=== PATIENT | female | born 1995 | race Caucasian/White ===

== ENCOUNTER 2024-08-09 10:08 | Emergency (ER) | payer BC, SELFPAY ==
[2024-08-09 10:17] VITALS: BP 101/59; PULSE 69; RESP 17; TEMP 36.9; O2SAT 100; BMI 21.5
[2024-08-09 11:37] LABS: Basophils % 0.4 %; Eosinophils # 0.1 10^3/uL (0.0-0.8); Hematocrit 38.3 % (36-47); Lymphocytes # 2.2 10^3/uL (0.8-4.8); Lymphocytes % 26.2 %; Mean Corpuscular HGB Conc 33.4 g/dL (30-55); Mean Corpuscular Volume 89.9 fl (85-98); Mean Platelet Volume 10.4 fL (7.4-10.4); Monocytes # 0.6 10^3/uL (0.2-0.9); Monocytes % 7.3 %; Neutrophils # 5.45 10^3/uL (1.8-7.7); Neutrophils % 64.6 %; Nucleated Red Blood Cells % 0 %; Platelet Count 227 10^3/cmm (157-399); Red Blood Count 4.26 10^6/uL (3.85-5.65); Red Cell Distribution Width 13.1 % (12.1-15.1); White Blood Count 8.41 10^3/uL (3.29-11.43)
--- NOTE | 2024-08-09 11:53 | USR_ITS ---
PROCEDURE INFORMATION: Exam: US , Transvaginal Exam date and time: 08/09/2024 1:30 PM Clinical indication: complicated by abdominal or pelvic pain; Left lower quadrant; First trimester (<14 weeks 0 days); Gestational age or lmp: ? ; Additional info: Abd pain in . No history of recent trauma or surgery is provided. TECHNIQUE: Imaging protocol: Real-time transvaginal obstetrical ultrasound of the maternal pelvis with image documentation. Transvaginal imaging was used for better evaluation of the fetus, adnexa, and/or cervix. COMPARISON: No relevant prior studies available. FINDINGS: Uterus: The uterus measures 6.7 x 4.2 x 3.7 cm. The uterine parenchymal echogenicity appears to be relatively homogeneous overall. The endometrial stripe thickness is around 0.6 cm. There appears to be some trace central uterine canal fluid present. No organized fluid to suggest central uterine canal gestational sac is currently appreciated. Cervix: The cervix measures 3.1 cm in length. No cervix level fluid collections are currently appreciated. Right ovary/adnexa: The right ovary measures 3.6 x 2.7 x 2.4 cm with color flow demonstrated. There are right ovarian follicular cystic changes present. There is 1 slightly complex area which measures around 1.6 x 1.6 x 2.2 cm with some color flow and could represent processes including complex cyst. No significant peripheral ring type hyperemia or internal fluid collections are currently appreciated for confirmation. There also appears to be some subtle prominence of the adjacent tube and could represent some minimal hydrosalpinx. Left ovary/adnexa: The left ovary measures 2.2 x 1.7 x 1.4 cm with color flow demonstrated. Left ovary demonstrates some follicular cystic change also with 1 of the larger areas measuring around 1 x 0.8 cm. Intraperitoneal space: There is a small amount of pelvic, cul-de-sac fluid present. US/US OB <=14 wk fetus w transvag IMPRESSION: 1. No intrauterine or extrauterine gestational confirmation is currently appreciated. There is however some complex cystic appearance for example about the right ovary without significant circumferential hyperemia. Therefore, consider continued clinical, hCG follow-up. 2. There are some ovarian cystic changes also present of the left. 3. There is a small amount of pelvic, cul-de-sac fluid. 4. Ovarian color flow is demonstrated bilaterally.
[2024-08-09 11:57] VITALS: BP 105/63; PULSE 72; RESP 16; O2SAT 100
[2024-08-09 12:00] VITALS: BP 104/58; PULSE 71; RESP 16; O2SAT 100
[2024-08-09 12:04] LABS: Bilirubin Urine Negative (Negative); Blood Urine Negative (Negative); Glucose Urine UA Negative (Normal); Ketones Urine Negative (Negative); Leukocyte Esterase Urine Negative (Negative); Nitrate Urine Negative (Negative); Protein Urine Negative (Negative); Specific Gravity, Urine 1.011 (1.005-1.030); Urine Appearance Clear (CLEAR); Urine Color Yellow (Yellow); Urobilinogen Urine 0.2 mg/dL (Negative); pH Urine 7.5 (5-7)
[2024-08-09 12:06] LABS: Alanine Aminotransferase 10 U/L (0-33); Albumin Level 4.3 g/dL (3.5-5.2); Alkaline Phosphatase 52 U/L (35-105); Anion Gap 12.7 (5-19); Aspartate Amino Transferase 13 U/L (0-32); Blood Urea Nitrogen 10 mg/dL (6-20); Calcium 8.9 mg/dL (8.5-10.5); Carbon Dioxide 19 mmol/L (22-29); Chloride 104 mmol/L (98-107); Creatinine Clr Calc Pharmacy 137.3238; Globulin 2.3 g/dL (1.3-4.6); Glucose 90 mg/dL (65-115); Lipase 14 U/L (13-60); Osmolality Calculated 273 mOsm/kg (285-295); Potassium 3.7 mmol/L (3.5-5.1); Sodium 132 mmol/L (136-145); Total Bilirubin 0.4 mg/dL (0.15-1.2); Total Protein 6.6 g/dL (6.6-8.7)
[2024-08-09 12:09] LABS: Add Urine Microscopic? YES; Bacteria Urine Trace /hpf; Hyaline Casts Urine 0-4 /lpf; Squamous Epithelial Cell Urine 0-5 /hpf (0-5); WBC Urine 0-5 /hpf (0-5)
--- NOTE | 2024-08-09 12:09 | ED_ITS ---
HPI - Abdominal Pain 2 General: Chief Complaint: Abdominal Pain Stated Complaint: cramping (6wk preg) Time Seen by Provider: 08/09/24 10:55 Source: patient Mode of arrival: ambulatory Limitations: no limitations History of Present Illness: 29-year-old female who is currently 6 we eks states she has been having some lower abdominal cramping over the last few days with some nausea. The pain is currently 2 out of 10 she denies any fevers. Denies any worse improving factors Associated Symptoms: Reports nausea; Denies chills, diarrhea, dysuria and fever(s) Related Data Date of Last Menstrual Period: 06/24/24 Allergies Allergy/AdvReac Type Severity Reaction Status Date / Time No Known Allergies Allergy Verified 08/09/24 10:22 Review of Systems 2 Const: Denies: fever(s), chills, body aches or change in appetite ENMT: Denies: throat pain or dental pain Card: Denies: chest pain Resp: Denies: dyspnea GI: Reports: abdominal pain and nausea; Denies: diarrhea : Denies: dysuria Musc: Denies: neck pain or back pain Skin/Breast: Denies: rash Neuro: Denies: headache(s) [facility] ED 2 Female Reproductive History: Date of last menstrual period: 06/24/24 Physical Exam 2 Const: COMMON NORMALS: no acute distress, patient oriented x3 and healthy appearing HENMT: COMMON NORMALS: normocephalic and atraumatic HEAD & SCALP: n ormocephalic and atraumatic Eye: COMMON NORMALS: conjunctivae normal CONJUNCTIVA: Yes conjunctivae normal Neck/C-Spine: COMMON NORMALS: full ROM and supple Chest: COMMONS NORMALS: normal inspection of the chest Resp: COMMON NORMALS: normal respiratory effort Cardio: COMMON NORMALS: regular rate, regular rhythm and No murmurs present (Cardio) RATE: regular rate RHYTHM: regular rhythm GI: COMMON NORMALS: Normal to inspection, nondistended, normoactive bowel sounds present, Soft to palpation, non-tender and no masses PALPATION: Yes Soft to palpation Extremity: COMMON NORMALS: normal to inspection and full ROM Neuro: COMMON NORMALS: patient oriented x3, moves all extremities and no focal motor deficits Psych: COMMON NORMALS: mental status grossly normal, Normal thought process present and cooperative THOUGHT PROCESS: Normal thought process present Skin: COMMON NORMALS: no rashes or lesions noted and no wounds GENERAL SKIN EXAM: no rashes or lesions noted Course 2 Vital Signs: Vital signs: Vital Signs Temperature 98.4 F 08/09/24 10:17 Pulse Rate 85 08/09/24 14:50 Respiratory Rate 16 08/09/24 12:00 Blood Pressure 100/68 08/09/24 14:50 Pulse Oximetry 93 08/09/24 14:50 Oxygen Delivery Me thod Room Air 08/09/24 14:50 MDM - Abdominal Pain Medical Decision Making Patient presents with lower abdominal pain in quantitative here is 1100 and unable to see a definite IUP on ultrasound no signs of definite ectopic her vitals and exam here benign I did inform her that she needs to follow-up in 48 hours either with her OB or in the ER for repeat of her quantitative I informed her that ectopic still is not ruled out and she has any increased pain or bleeding she is to return immediately she understands and agrees to the plan Medical Records I reviewed the patient's medical records. Lab Data I reviewed the patient's lab results. 08/09/24 11:30 08/09/24 11:30 Labs/Radiology: Radiology Impressions Obstetrics Ultrasound 08/09/24 11:53 IMPRESSION: 1. No intrauterine or extrauterine gestational confirmation is currently appreciated. There is however some complex cystic appearance for example about the right ovary without significant circumferential hyperemia. Therefore, consider continued clinical, hCG follow-up. 2. There are some ovarian cystic changes also present of the left. 3. There is a small amount of pelvic, cul-de-sac fluid. 4. Ovarian color flow is demonstrated bilaterally. Laboratory Results WBC 8.41 10^3/uL (3.29-11.43) 08/09/24 11:30 RBC 4.26 10^6/uL (3.85-5.65) 08/09/24 11:30 Hgb 12.80 g/dL (11.27-16.99) 08/09/24 11:30 Hct 38.3 % (36-47) 08/09/24 11:30 MCV 89.9 fl (85-98) 08/09/24 11:30 MCH 30.0 pg (27-33) 08/09/24 11:30 MCHC 33.4 g/dL (30-55) 08/09/24 11:30 RDW 13.1 % (12.1-15.1) 08/09/24 11:30 Plt Count 227 10^3/cmm (157-399) 08/09/24 11:30 MPV 10.4 fL (7.4-10.4) 08/09/24 11:30 Neut % (Auto) 64.6 % 08/09/24 11:30 Lymph % (Auto) 26.2 % 08/09/24 11:30 Cowley % (Auto) 7.3 % 08/09/24 11:30 Eos % (Auto) 1.0 % 08/09/24 11:30 Baso % (Auto) 0.4 % 08/09/24 11:30 Neut # (Auto) 5.45 10^3/uL (1.8-7.7) 08/09/24 11:30 Lymph # (Auto) 2.2 10^3/uL (0.8-4.8) 08/09/24 11:30 Cowley # (Auto) 0.6 10^3/uL (0.2-0.9) 08/09/24 11:30 Eos # (Auto) 0.1 10^3/uL (0.0-0.8) 08/09/24 11:30 Baso # (Auto) 0.0 10^3/uL (0.0-0.1) 08/09/24 11:30 Nucleated RBC % (auto) 0 % 08/09/24 11:30 Nucleated RBCs # 0.0 /100WBC 08/09/24 11:30 Sodium 132 mmol/L (136-145) L 08/09/24 11:30 Potassium 3.7 mmol/L (3.5-5.1) 08/09/24 11:30 Chloride 104 mmol/L (98-107) 08/09/24 11:30 Carbon Dioxide 19 mmol/L (22-29) L 08/09/24 11:30 Anion Gap 12.7 (5-19) 08/09/24 11:30 BUN 10 mg/dL (6-20) 08/09/24 11:30 Creatinine 0.5 mg/dL (0.5-0.9) 08/09/24 11:30 GFR Calculation 148.0 mL/min (90-130) H 08/09/24 11:30 Glucose 90 mg/dL (65-115) 08/09/24 11:30 Calculated Osmolality 273 mOsm/kg (285-295) L 08/09/24 11:30 Calcium 8.9 mg/dL (8.5-10.5) 08/09/24 11:30 Total Bilirubin 0.4 mg/dL (0.15-1.2) 08/09/24 11:30 AST 13 U/L (0-32) 08/09/24 11:30 ALT 10 U/L (0-33) 08/09/24 11:30 Alkaline Phosphatase 52 U/L (35-105) 08/09/24 11:30 Total Protein 6.6 g/dL (6.6-8.7) 08/09/24 11:30 Albumin 4.3 g/dL (3.5-5.2) 08/09/24 11: Globulin 2.3 g/dL (1.3-4.6) 08/09/24 11:30 Lipase 14 U/L (13-60) 08/09/24 11:30 Ser , Semi-Qnt 1173.00 mIU/mL 08/09/24 11:30 Urine Color Yellow (Yellow) 08/09/24 10:50 Urine Appearance Clear (CLEAR) 08/09/24 10:50 Urine pH 7.5 (5-7) 08/09/24 10:50 Ur Specific Gillespie 1.011 (1.005-1.030) 08/09/24 10:50 Urine Protein Negative (Negative) 08/09/24 10:50 Urine Glucose (UA) Negative (Normal) 08/09/24 10:50 Urine Ketones Negative (Negative) 08/09/24 10:50 Urine Blood Negative (Negative) 08/09/24 10:50 Urine Nitrate Negative (Negative) 08/09/24 10:50 Urine Bilirubin Negative (Negative) 08/09/24 10:50 Urine Urobilinogen 0.2 mg/dL (Negative) 08/09/24 10:50 Ur Leukocyte Esterase Negative (Negative) 08/09/24 10:50 Urine RBC 3-5 /hpf (0-2) 08/09/24 10:50 Urine WBC 0-5 /hpf (0-5) 08/09/24 10:50 Ur Squamous Epith Cells 0-5 /hpf (0-5) 08/09/24 10:50 Amorphous Sediment Not Reportable 08/09/24 10:50 Urine Bacteria Trace /hpf (NONE) 08/09/24 10:50 Hyaline Casts 0-4 /lpf H 08/09/24 10:50 Blood Type A Negative 08/09/24 11:30 Rho(D) Type Rh negative 08/09/24 11:30 Antibody Screen Negative 08/09/24 11:30 All radiology interpretation(s) finalized by discharge Discharge Plan Discharge Patient Disposition: Home Clinical Impression: Abdominal pain affecting Condition: Stable Discharge Orders: Discharge ED (Routine); Ordered 08/09/24 Ordered By: Amrit Thornton Discharge Diet: Advance as tolerated Discharge Activity: Resume usual activity Patient Instructions: Abdominal Pain (ED) Activity Restrictions/Additional Instructions: Follow-up in 48 hours to have a repeat quantitative if you have any increasing pain or vaginal bleeding return to ER immediately Coding Level of Care Code ED Moisture Tester for Dyana Guevara
--- NOTE | 2024-08-09 12:52 | PC.NURSE ---
pt has taken off vital sign equipment, will recheck.
--- NOTE | 2024-08-09 13:21 | PC.NURSE ---
pt previously changed into gown, has pelvic bed, and states her bladder is empty.
[2024-08-09 14:50] VITALS: BP 100/68; PULSE 85; O2SAT 93
[2024-08-09 15:11] VITALS: BP 118/67; PULSE 69; O2SAT 95
== END 2024-08-09 15:12 | disposition home or self-care (01) ==
PROVIDERS: Emergency Provider Emergency Medicine
DX: O26.891 Other specified pregnancy related conditions, first trimester (principal); R10.30 Lower abdominal pain, unspecified; Z3A.01 Less than 8 weeks gestation of pregnancy
CPT/HCPCS: 36415; 76801; 76817; 80053; 81001; 83690; 84702; 85025; 86850; 86900; 99284